=== PATIENT | male | born 1990 | race Caucasian/White ===

== ENCOUNTER 2017-06-17 13:36 | Emergency (ER) | payer MEDICARE, BC, MEDICAID, OTHER ==
[2017-06-17] MEDS: DIPHTH/TET/ACEL PERTUSS (ADULT) 0.5 ML VIAL IM* (14:45)
[2017-06-17] MEDS: LIDOCAINE 1% (MDV) 10 ML INJ INFIL (15:54)
== END 2017-06-17 18:02 | disposition home or self-care (01) ==
LOC: FTE 13:36
DX: S51.811A Laceration without foreign body of right forearm, initial encounter (principal); S50.811A Abrasion of right forearm, initial encounter; F84.0 Autistic disorder; S60.511A Abrasion of right hand, initial encounter; F17.210 Nicotine dependence, cigarettes, uncomplicated; W25.XXXA Contact with sharp glass, initial encounter; Y92.9 Unspecified place or not applicable; Z23 Encounter for immunization
CPT/HCPCS: 12042; 73090-RT; 73130-RT; 90471; 90715; 99283-25

== ENCOUNTER 2017-07-01 09:55 | Emergency (ER) | payer MEDICARE, BC, MEDICAID | END 2017-07-01 10:46 | disposition home or self-care (01) | LOC: E/R 10:46 | DX: Z48.02 Encounter for removal of sutures (principal); F84.0 Autistic disorder | CPT/HCPCS: 99281 ==